=== PATIENT | male | born 1960 | race Caucasian/White ===

== ENCOUNTER 2017-02-07 06:33 | Day surgery (SDC) | payer OTHER ==
[~2017-02-07] VITALS: Ht 177.8 cm; Wt 87.3 kg
[~2017-02-07 06:33] MED LIST: ALBUTEROL SULFATE 2.5 MG/0.5 ML NEB SOLUTION NEB ONE; BENZOCAINE 20% 30 ML SOLUTION ONE; LIDOCAINE HCL 2% 30 ML JELLY ONE; LIDOCAINE HCL 4% 50 ML SOLUTION ONE; SODIUM CHLORIDE 0.9% 1,000 ML IV ONE
[2017-02-07] MEDS ORDERED: SODIUM CHLORIDE 0.9% 1,000 ML IV ONE (06:51)
[2017-02-07] MEDS ORDERED: FentaNYL CITRATE-PF 100 MCG/2 ML VIAL ONE (08:00)
[2017-02-07] MEDS ORDERED: MIDAZOLAM HCL 2 MG/2 ML VIAL ONE (08:00)
[2017-02-07] MEDS ORDERED: MethylPREDNISolone SOD SUCC 125 MG/2 ML VIAL IVP ONE (08:45)
[2017-02-07] MEDS ORDERED: MethylPREDNISolone SOD SUCC 125 MG/2 ML VIAL ONE (08:55)
[2017-02-07] MEDS ORDERED: OXYGEN THERAPY IH SCH (20:00)
== END 2017-02-07 09:35 | disposition home or self-care (01) ==
LOC: SURGERY 06:33
PROVIDERS: ATTEND Internal Medicine Critical Care Medicine
DX: J38.4 Edema of larynx (principal); B37.0 Candidal stomatitis; Z72.89 Other problems related to lifestyle; Z98.890 Other specified postprocedural states
CPT/HCPCS: 31623; 31624; 71010; 87015 ×2; 87070; 87101; 87147; 87205; 87220; 88108; 88312; J2250; J2930; J3010; J7030

== ENCOUNTER 2021-07-01 05:59 | Day surgery (SDC) | payer OTHER ==
[~2021-07-01] VITALS: Ht 170.2 cm; Wt 79.5 kg
[2021-07-01] MEDS ORDERED: SODIUM CHLORIDE 0.9% 1,000 ML ONE (06:29)
[2021-07-01] MEDS ORDERED: SODIUM CHLORIDE 0.9% 1,000 ML IV ONE (06:30)
[2021-07-01 06:54] LABS: COVID AG,FIA SOURCE NASAL SWAB
[2021-07-01] MEDS ORDERED: FentaNYL CITRATE PF 100 MCG/2 ML VIAL ONE (07:10)
[2021-07-01] MEDS ORDERED: MIDAZOLAM HCL 5 MG/ML VIAL ONE (07:10)
[2021-07-01] MEDS ORDERED: A20IH1 NEB (07:38)
[2021-07-01] MEDS ORDERED: FLUT16H NASAL (07:38)
[2021-07-01] MEDS ORDERED: DULA1.5P SQ (07:38)
[2021-07-01] MEDS ORDERED: SOLI5 PO (07:38)
[2021-07-01] MEDS ORDERED: FLUT44H IH (07:38)
[2021-07-01] MEDS ORDERED: EMPA25TA PO (07:38)
[2021-07-01] MEDS ORDERED: PIOG15TA6 PO (07:38)
[2021-07-01] MEDS ORDERED: SITA1TBM4 PO (07:38)
[2021-07-01] MEDS ORDERED: VALS1TAB76 PO (07:38)
[2021-07-01] MEDS ORDERED: METO-558 PO (07:38)
[2021-07-01] MEDS ORDERED: AMLO-257 PO (07:38)
[2021-07-01] MEDS ORDERED: FENO48TA12 PO (07:38)
[2021-07-01] MEDS ORDERED: ATOR40TA28 PO (07:38)
[2021-07-01] MEDS ORDERED: LORazepam 2 MG/ML VIAL IVP ONE (09:25)
[2021-07-01] MEDS ORDERED: MethylPREDNISolone SOD SUCC 125 MG/2 ML VIAL IVP ONE (09:30)
[2021-07-01] MEDS ORDERED: MethylPREDNISolone SOD SUCC 125 MG/2 ML VIAL ONE (09:47)
[2021-07-01] MEDS ORDERED: LORazepam 2 MG/ML VIAL ONE (10:23)
[2021-07-01] MEDS ORDERED: OXYGEN THERAPY IH SCH (20:00)
== END 2021-07-01 11:10 | disposition home or self-care (01) ==
LOC: SURGERY 05:59
PROVIDERS: ATTEND Internal Medicine Critical Care Medicine
DX: J38.4 Edema of larynx (principal); B37.0 Candidal stomatitis; Z87.891 Personal history of nicotine dependence; Z98.890 Other specified postprocedural states; Z79.899 Other long term (current) drug therapy
CPT/HCPCS: 31623; 31624; 71045; 87015; 87070; 87101; 87206; 87220; 87426; 88112; 88184; 88185; 88312; C9803; J2060; J2250; J2930; J3010; J7030